=== PATIENT | female | born 1980 | race Caucasian/White ===

== ENCOUNTER 2017-06-24 13:53 | Emergency (ER) | payer MEDICAID, SELFPAY ==
[2017-06-24 13:54] VITALS: BP 128/66; PULSE 102; RESP 16; TEMP 37.1; O2SAT 99; BMI 24.5
--- NOTE | 2017-06-24 14:55 | US_ITS ---
STUDY: ULTRASOUND TRANSVAGINAL CLINICAL: Female, 36 years old. Right pelvic pain TECHNIQUE: Transvaginal COMPARISON: CT scan 06/05/2016 and previous ultrasound 07/28/2016. FINDINGS: Uterus is surgically absent. Normal right ovary, measuring 3.3 x 1.7 x 1.1 cm. There are multiple follicles without a dominant cyst. Normal left ovary, measuring 3.3 x 1.9 x 1.5 cm. There are multiple follicles without a dominant cyst. There is no free fluid in the pelvis. Polycystic ovary disease: No. US/Transvaginal Non- IMPRESSION: Status post hysterectomy. Normal appearance of ovaries. Electronically Signed: César Gomez MD at 16:07 EDT , Service support ,
[2017-06-24] MEDS: Morphine 4 MG/ML Syringe IV (15:06)
[2017-06-24] MEDS: Ondansetron 4 MG/2 ML Vial IV (15:07)
--- NOTE | 2017-06-24 16:25 | ED.VISSUMM ---
- ER Visit Summary Date of Service: 06/24/17 Chief Complaint: Pelvic pain History of Present Illness: The patient is a 36 F who [facility] She reports that she has pain right side of her pelvis that began approximately 1 week ago. It is a sharp, stabbing pain is 1010 at worst 9 out of 10 currently. She taken ibuprofen without relief. Pain is worsened by movement. She denies any vaginal bleeding or discharge. She denies any dysuria frequency. She has had similar symptoms in the past with ovarian cysts. Patient does have history of kidney stones. However, she reports this is not similar to that at all. She is also had an appendectomy. Physical Examination: Vitals: Stable. Afebrile. General: Well-nourished and well-developed. Head: Normocephalic atraumatic. Neck: Supple, no lymphadenopathy. No JVD. Nontender. Cardiovascular: Regular rate and rhythm. No murmurs. Respiratory: No respiratory distress. Clear to auscultation bilaterally. Abdominal: Soft, moderate tenderness palpation is diffuse over the suprapubic and adnexal regions, nondistended, normal bowel sounds. No guarding, rebound, or peritoneal signs. Back: Nontender. Extremities: Nontender, no edema. Skin: Normal color, no rash. Neurologic: Alert and oriented ?3. Cranial nerves II through XII are intact. Normal strength and sensation. Psych: Normal affect. Test Results: Ultrasound shows normal appearance of her ovaries. There are multiple follicles bilaterally without a dominant cyst. Emergency Department Course and Treatment: Patient was treated with morphine IV and is resting comfortably. Treatment Plan: An [facility] report was obtained which show she has had 12 prescriptions for opiates in the past year. She will be discharged naproxen instructed to follow-up with her primary care physician 1 to days if not improving. Return to the emergency department for any worsening symptoms. Disposition: To home in improved and stable condition. Impression: 1. Abdominal pain, uncertain cause. This note was generated with [employer] dictation software. It may contain incorrect words, spelling, and punctuation that were not noted in review of the chart prior to signing ED Disposition - Plan for ED Patient: Disposition: Home or Assisted Living Chief Complaint: Female C/O Instructions: ED Abdominal Pain Unkn Cause Prescriptions: Naproxen [Naprosyn] 500 mg PO BID PRN #20 tablet Referrals: Joshua Farris [Primary Care Provider] - 1-2 Days if not improving
[2017-06-24 16:40] VITALS: BP 105/71; PULSE 83; RESP 16; O2SAT 100
--- NOTE | 2017-06-24 16:41 | ED.RN ---
THIS NURSE REVIEWED D/C INSTRUCTIONS WITH PT. PT VERBALIZED UNDERSTANDING OF INSTRUCTIONS. IV D/C. IV CATHETER INTACT. PT TOLERATED WELL. PT DENIES FURTHER NEEDS OR QUESTIONS AT THIS TIME.
== END 2017-06-24 16:42 | disposition home or self-care (01) ==
LOC: ED 15:07
PROVIDERS: Emergency Provider Emergency Medicine; Family Provider Internal Medicine; PCP Internal Medicine
DX: R10.9 Unspecified abdominal pain (principal); R11.2 Nausea with vomiting, unspecified; Z87.442 Personal history of urinary calculi; Z90.710 Acquired absence of both cervix and uterus
CPT/HCPCS: 76830; 93976; 96374; 96375; 99284; A4216; J2405

== ENCOUNTER 2019-03-24 14:54 | Emergency (ER) | payer MEDICAID, SELFPAY ==
[2019-03-24 14:55] VITALS: BP 128/83; PULSE 83; RESP 16; TEMP 36.6; O2SAT 100; BMI 25.6
--- NOTE | 2019-03-24 15:34 | ED.VIS.GEN ---
History of Present Illness Chief Complaint: Dental Informant: Patient Onset: Weeks Current Severity: Moderate Maximum Severity: Moderate Narrative: Patient presents with right-sided dental pain. She reports several months ago a tooth on the right mandibular surface broke off at the gumline. About 2 months ago she had swelling and pain. [facility] given ibupro[facility] and an antibiotic. Patient states that seem to calm things down until about a week ago when the inflammation returned. She been taking ibuprofen without improvement. - Past Medical History (1) Kidney stones Status: Chronic (2) Ovarian cyst Status: Chronic Past Medical History - Allergies and Home Meds Allergies/Adverse Reactions: Allergies Sulfa (Sulfonamide Antibiotics) Allergy (Verified 03/24/19 14:56) Rash Primary Care Physician: Joshua Farris [Primary Care Provider] - Prior records reviewed: Yes Surgical History: appendectomy, hysterectomy - partial, - - Smoking Status: Never smoker Review of Systems General: Denies: Chills, Fever Eyes: Denies: Visual changes - bilaterally ENT: Reports: - - Right-sided dental pain. Denies: Bilateral ear pain Cardiovascular: Denies: Chest pain Respiratory: Denies: Dyspnea, Cough Gastrointestinal: Denies: Abdominal pain, Nausea, Vomiting, Diarrhea Genitourinary: Denies: Dysuria Musculoskeletal: Denies: Extremity Pain Neurological: Denies: Headache Allergy: Denies: Uticaria Physical Exam Vital Signs/Narrative: Vital Signs Temp Pulse Resp BP Pulse Ox 03/24/19 14:55 97.9 F 83 16 128/83 H 100 Inital Vital Signs reviewed: Yes General: Well nourished, Well developed Head: Normocephalic ENT: Moist mucous membranes, - - Right mandibular first premolar is broken off at the gumline with mild surrounding gum edema. No submandibular fullness. No trismus. Posterior pharynx exam is normal. Neck: Supple Cardiovascular: Regular rate, Regular rhythm, No murmurs Respiratory: No distress, CTA bilaterally Abdomen: Soft, Nontender Extremities: Nontender Skin: Normal color, No rash Neurological: Alert, Oriented x3 Psychological: Normal affect Diagnostic/Tx/Re-eval - Medical Decision Making Patient be given a dental list of the area clinics. She will be given 1 tab of [place] here along with naproxen and Pen-Vee K. She will receive prescriptions for naproxen and Pen-Vee K. ED Disposition - Plan for ED Patient: Disposition: Home or Assisted Living Diagnosis: Pain, dental Instructions: Dental Pain Prescriptions: Naproxen [Naprosyn] 500 mg PO BID PRN PRN #20 tablet PRN Reason: Pain Score 4-10/10 Penicillin V Potassium 500 mg PO 4X/DAY #40 tablet Referrals: Joshua Farris [Primary Care Provider] - Additional Instructions: Dental list provided.
[2019-03-24] MEDS: HYDROcodone Bitartrate/Apap 5/325 Tablet PO (15:42)
[2019-03-24] MEDS: Naproxen 500 MG Tablet PO (15:42)
[2019-03-24] MEDS: Penicillin Vk 250 MG Tablet 500 MG PO (15:42)
== END 2019-03-24 15:45 | disposition home or self-care (01) ==
PROVIDERS: Emergency Provider Emergency Medicine; Family Provider Internal Medicine; PCP Internal Medicine
DX: K08.89 Other specified disorders of teeth and supporting structures (principal); Z88.2 Allergy status to sulfonamides; Z90.710 Acquired absence of both cervix and uterus; N83.209 Unspecified ovarian cyst, unspecified side; Z87.442 Personal history of urinary calculi
CPT/HCPCS: 99283